=== PATIENT | female | born 1990 | race American Indian/Alaskan Native ===

== ENCOUNTER 2021-08-28 08:24 | Outpatient (CLI) | payer OTHER ==
--- NOTE | 2021-08-28 12:33 | Mammography Report ---
BILATERAL DIGITAL DIAGNOSTIC MAMMOGRAM WITH CAD 08/28/2021 RIGHT LIMITED BREAST ULTRASOUND INDICATION: The patient reports a palpable lump in the upper outer right breast for approximately one month. TECHNIQUE: Digital bilateral mammographic imaging was performed. Spot compression views were obtaine d. Limited ultrasound was performed. This examination was interpreted with the benefit of Computer- ded Detection (CAD) analysis. COMPARISON: None. This is the patient's first mammogram. FINDINGS: Breast Density: The breasts are extremely dense, which lowers the sensitivity of mammography. MAMMOGRAPHIC FINDINGS: Right breast: There is a circumscribed 3.2 cm density in the upper outer right breast. This correspon ds to the patient's area of palpable concern as marked with a skin marker. Left breast: There is no evidence of dominant mass, suspicious calcifications or architectural distor tion in the left breast. ULTRASOUND FINDINGS: Targeted ultrasound evaluation was performed of the area of interest. Sonograp hic evaluation of the right breast at the 11:00 position 2 cm from the nipple demonstrates an oval 3. 2 cm simple cyst. This accounts for the patient's area of palpable concern and to the mammographic fi ndings. IMPRESSION: 1. Right breast cyst as described corresponding to the patient's area of palpable concern and repres enting a benign finding. 2. No mammographic abnormality of either breast. Follow up recommendation: Clinical exam BI-RADS Category 2: BENIGN. A "normal" or negative report should not discourage follow up or biopsy of a clinically significant f inding. A written summary of these findings will be mailed to the patient. The patient will be entered into a mammography reporting system which will generate a reminder letter for the patient's next appointmen t at the appropriate interval. According to the [employer], yearly mammograms are recommended starting at age 40 and continuing as long as a woman is in good health. Breast MRI is recommended for women with an zeferino roximately 20-25% or greater lifetime risk of breast cancer, including women with a strong family his tory of breast or ovarian cancer and women who have been treated for Hodgkin's disease. Signer Name: Vickie Velasquez MD Signed: 08/28/2021 12:29 PM Workstation Name: [id number]
== END 2021-08-28 08:25 | disposition home or self-care (01) ==
LOC: MAMMO 08:24
PROVIDERS: ATTEND Obstetrics & Gynecology
DX: N60.01 Solitary cyst of right breast (principal); N63.12 Unspecified lump in the right breast, upper inner quadrant
CPT/HCPCS: 77066